=== PATIENT | female | born 1950 | race Caucasian/White ===

== ENCOUNTER 2016-12-23 12:00 | Emergency (ER) | payer MEDICARE, OTHER ==
[~2016-12-23] VITALS: Ht 167.6 cm; Wt 64.0 kg
[~2016-12-23 12:00] MED LIST: CIPR500T4 PO; CIPR750T10 PO; PYRI200T4 PO; RAMI10CA35 PO; [UNRECOGNIZED DRUG - OTHER] PO
[2016-12-23 12:08] VITALS: BP 151/95; PULSE 85; RESP 16; TEMP 98.2; O2SAT 98
--- NOTE | 2016-12-23 12:22 | PD ---
HPI Chief Complaint: Hypertension Time Seen by Provider: 12:13 Travel History International Travel<30 days: No Contact w/Intl Traveler<30days: No Traveled to known affect area: No History of Present Illness HPI This is a 66-year-old female who presents to the emergency department reporting that her blood pressure is high. She says that one week ago she went to see Dr. Apodaca for cerumen impaction in is that time he recommended that she start a probiotic. This morning she took the probiotic that she was afraid to take her blood pressure medication with it because she thought it would be too strong. Then she felt like her blood pressure was high. She can't really describe this feeling but she says she knows her body. She denies any headache, chest pain or shortness of breath. The symptoms persisted for about an hour and she got nervous and came to the emergency department. She didn't check her blood pressure at that time. She takes ramipril. PFSH Past Medical History Hx Anticoagulant Therapy: Yes Anxiety: Yes Cardiovascular Problems: Yes (HTN) Diabetes: Yes Diminished Hearing: No Hypertension: Yes Immunizations Current: No Thyroid Disease: Yes ?: Not Menopausal: No Past Surgical History Hysterectomy: Yes Tonsillectomy: Yes Social History Alcohol Use: No Tobacco Use: No Substance Use: No Allergies-Medications (Allergen,Severity, Reaction): Coded Allergies: Clindamycin (Verified Allergy, Severe, RASH, 12/23/16) Uncoded Allergies: LISAYIL-PANAMA (Allergy, Severe, 12/27/08) Reported Meds & Prescriptions Reported Meds & Active Scripts Active Review of Systems Except as stated in HPI: all other systems reviewed are Neg Physical Exam Narrative GENERAL:Well appearing, no acute distress SKIN: Warm and dry. HEAD: Atraumatic. Normocephalic. EYES: Pupils equal and round. No injection or drainage. ENT: Moist mucous membranes NECK: Trachea midline. CARDIOVASCULAR: Regular rate and rhythm. No murmur appreciated. RESPIRATORY: Clear to auscultation. Breath sounds equal bilaterally. GASTROINTESTINAL: Abdomen soft, non-tender, nondistended. MUSCULOSKELETAL: No obvious deformities. NEUROLOGICAL: Awake and alert. No obvious cranial nerve deficits. Moving all extremities. PSYCHIATRIC: Anxious with some pressured speech. Data Data Last Documented VS Vital Signs Date Time Temp Pulse Resp B/P Pulse Ox O2 Delivery O2 Flow Rate FiO2 12/23/16 12:08 98.2 85 16 151/95 98 MDM Medical Decision Making Medical Screen Exam Complete: Yes Emergency Medical Condition: Yes Interpretation(s) Afebrile, hypertensive Differential Diagnosis Hypertension, hypertensive urgency, hypertensive emergency, anxiety Narrative Course This is a 66-year-old female who presents to the emergency department with reported high blood pressure. She didn't take her blood pressure medication this morning because she was worried about mixing it with her probiotic. Here in the emergency department his systolic blood pressures in the 150s. I instructed her to take her grandma prone. Otherwise she has no signs or symptoms of hypertensive emergency. I told her to discontinue her probiotic. Patient will be discharged home and can follow-up with her primary care physician. I suspect she suffers from anxiety. Diagnosis Primary Impression: Hypertension Qualified Code: I10 - Essential hypertension Patient Instructions: General Instructions Additional Instructions: If you develop severe chest pain, shortness of breath, sweating, lightheadedness , dizziness or difficulty breathing return to the emergency department immediately. Followup with your primary care physician in 2-3 days if your symptoms are not resolved. Med/Other Pt SpecificInfo: No Change to Meds Disposition: 01 DISCHARGE HOME Condition: Stable Farzana Laureano MD Dec 23, 2016 12:22
[2016-12-23] MEDS ORDERED: RAMI10CA PO (12:24)
== END 2016-12-23 12:36 | disposition home or self-care (01) ==
LOC: PHED 12:00
DX: I10 Essential (primary) hypertension (principal)
CPT/HCPCS: 99283